=== PATIENT | male | born 2000 | race Caucasian/White ===

== ENCOUNTER 2024-09-13 12:18 | Outpatient (CLI) | payer OTHER, SELFPAY ==
--- NOTE | ~2024-09-13 | XR_ITS ---
Clinical Indication: Pectus PA and lateral views of the chest: Comparison: 09/15/2005 Findings: The lungs are clear, without evidence of focal consolidation or pleural effusion. Cardiome diastinal silhouette is within normal limits. Bones and soft tissues appear unremarkable. Impression: No significant abnormality seen. Reviewed, dictated and finalized at location . Impression: No significant abnormality seen.
--- OUTSIDE RECORDS SUMMARY | 2024-09-13 12:22 | XMS_ITS | Encounter Summary ---
Author Organization [facility] Health Address [address] [place] [address] Care Team Providers Care Rail Technician Name Role Phone Bridget Lorenz MD Primary Care Provider [phone] Ned Frazier MD Primary Care Provider [phone] Encounter Details Date Type Department Care Team (Late st Contact Info) Description 08/19/2013 [facility] DEPT Unknown, Provider Social History Tobacco Use Types Packs/Day Years Used Date Smoking Tobacco: Never Assessed Sex and Gender Information Value Date Recorded Sex Assigned at Not on file 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
--- OUTSIDE RECORDS SUMMARY | 2024-09-13 12:22 | XMS_ITS | Clinical Summary ---
Author Organization [facility] Address [address] [facility] [place] [address] Care Team Providers Care Information Systems Specialist Name Role Phone Ned Frazier MD Primary Care Provider [phone] Source Comments [facility],non-owned Affiliates and Associated Physician Practices is amultiple site organization consisting of ambulatory clinics and hospital sitesin [place], [place], [place] and [place]. This disclosure is being madepursuant to the Care Everywhere program and may not contain all information available regarding this patient. Last updated 17.[facility] Allergies No known active allergies Medications * Be aware that medications may not be up to date on this document. Alwaysverify current medications with the patient. sulfacetamide sodium-sulfur (Avar-e Emollient) 10-5 % creamIndication s:Rosacea Apply to affected area once daily Apply to face daily Reasons: Rosacea 57 g 5 10/18/2023 Active Active Problems No known active problems Immunizations Immunization Administration Dates Next Due INFLUENZA VACCINE, TRIV. (AF LURIA, FLUZONE TRIVALENT; 6MO+) (IIV3) 12/07/2011 DTaP VACCINE IM (6wk-6yrs) 07/28/2007,,01/30/2003,11/28,2002 HEP A PEDS 2 DOSE 02/13/2005,08/15/2004 HEP B VACCINE, PED/ADOL 01/30/2003,11/28,2002,07/26 HIB BOOSTER 11/26/2003, 3,2002,09/25 Human Papilloma Virus Vipul valent Vaccine 05/22/2014,01/16/2014,11/14/2013 INFLUENZA A [id number] VACCINE 01/11/2009 INFLUENZA VACCINE 01/03/2008, 7,12/29/2005,01/13,12/13/2003 INFLUENZA VACCINE, QUADR. 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 Gender Identity Not on file Sexual Orientation Not on file Last Filed Vital Signs Vital Sign Reading Time Taken Comments Blood Pressure 103/63 08/12/2017 3:30 PM CDT Pulse 78 08/12/2017 3:30 PM CDT Temperature 37.4 C (99.3 F) 08/12/2017 3:30 PM CDT Respiratory Rate - - Oxygen Saturation - - Inhaled Oxygen Concentration - - Weight 65.3 kg (144 lb) 08/12/2017 3:30 PM CDT Height 186.7 cm (6' 1.5) 08/12/2017 3:30 PM CDT Body Mass Index 18.74 08/12/2017 3:30 PM CDT Plan of Treatment Health Maintenance Due Date Last Done Comments HIV SCREENING 2017 MENINGOCOCCAL (Group B) VACCINE SHARED DECISION-MAKING (1 of 2 - Standard) 2018 HEPATITIS C SCREENING 07/21/2020 DTAP/TDAP/TD VACCINES (7 - Td or Tdap) 10/22/2023 10/21/2013, 07/28/2007, 01/29/2004, Additional history exists COVID-19 VACCINE ( season) 2023 DEPRESSION SCREENING 03/08/2024 INFLUENZA VACCINE (Season Ended) 2024 12/04/2017, 12/27/2015, 12/18/2014, Additional history exists ZOSTER VACCINE (1 of 2) 2052 HEPATITIS B VACCINE Completed 01/30/2003, 2002, 2002, Additional history exists HIB VACCINE Completed 11/26/2003, 01/07, 2002, Additional history exists PNEUMOCOCCAL VACCINE Completed 01/29/2004, 01/30/2003, 2002, Additional history exists MENINGOCOCCAL GROUPS A/C/Y/W VACCINE Aged Out 10/21/2013 No longer eligible based on patient's age to complete this topic HPV VACCINE Completed 05/22/2014, 01/06, 11/14/2013 Goals Goal Patient Goal Type Associated Problems Recent Progress Patient-Stated? Author SSJavier Lifestyle: Use safety retraint in car Lifestyle On track( 018 3:30 PM CDT) Yoli Tolliver, TROY [place] [address] [facility] Care Teams Information Systems Specialist Relationship Specialty Start Date End Date Ned Frazier MD PCP - General 09/22/17
--- OUTSIDE RECORDS SUMMARY | 2024-09-13 12:22 | XMS_ITS | Encounter Summary ---
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
--- OUTSIDE RECORDS SUMMARY | 2024-09-13 12:22 | XMS_ITS | Referral Summary ---
Author Organization [facility] Address [address] [place] [id number] Care Team Providers Care Contract Negotiation Specialist Name Role Phone Ned Frazier MD Primary Care Provider [phone] Allergies No known active allergies Medications buPROPion XL (WELLBUTRIN XL) 300 mg 24 hr tablet Take 300 mg by mouth daily 10/11/2020 Active cholecalciferol (cholecalciferol ) 400 unit capsule Take 300 Units by mouth daily Active ibuprofen (ADVIL,MOTRIN) 200 mg tab/cap Take 2 tablet/caps ule (400 mg total) by mouth every 6 (six) hours as needed for pain 0 12/16/2020 Active Active Problems Problem Noted Date Diagnosed Date Finger mass, right 11/12/2020 Overview (11/12/2020): Added automatically from request for surgery [id number] Social History Tobacco Use Types Packs/Day Years Used Date Smoking Tobacco: Never Smokeless Tobacco: Never Sex and Gender Information Value Date Recorded Sex Assigned at Not on file Legal Sex Male 1:45 PM CDT Gender Identity Not on file Sexual Orientation Not on file Last Filed Vital Signs Vital Sign Reading Time Taken Comments Blood Pressure 94/64 12/16/2020 1:54 PM CDT Pulse 86 12/16/2020 1:54 PM CDT Temperature 37.2 C (99 F) 12/16/2020 1:24 PM CDT Respiratory Rate 18 12/16/2020 1:40 PM CDT Oxygen Saturation 97% 12/16/2020 1:54 PM CDT Inhaled Oxygen Concentration - - Weight 77.9 kg (171 lb 11.8 oz) 021 12:11 PM CDT Height 193 cm (6' 3.98) 12/16/2020 12: 11 PM CDT Body Mass Index 20.91 12/16/2020 12:11 PM CDT Plan of Treatment Not on file Insurance [facility] CHOICE PLUS [place] [id number] Advance Directives For more information, please contact: [phone] Documents on File Type Date Recorded Patient Editorial Cartoonist Expl anation ADVANCE DIRECTIVE 12/16/2020 12:08 PM * Full Code (Latest Code Status on File) Date Activated Date Inactivated Comments 12/16/2020 12:11 PM 12/16/2020 6:38 PM Care Teams Contract Negotiation Specialist Relationship Specialty Start Date End Date Ned Frazier MD [address] [place] [id number] PCP - General Family Medicine 11/06/20
--- OUTSIDE RECORDS SUMMARY | 2024-09-13 12:22 | XMS_ITS | Clinical Summary ---
Author Organization [facility] Address [address] [place] [id number] Care Team Providers Care Sheet Rock Sander Name Role Phone Ned Frazier MD Primary Care Provider [phone] Allergies No known active allergies Medications buPROPion [...] (11/12/2020): Added automatically from request for surgery [id number] Surgical History Surgery Date Site/Laterality Comments WISDOM TOOTH EXTRACTION 03/08/2018 - 03/07/2019 Medical History Medical History Date Comments Depression Seasonal allergies Migraine Family History Medical History Relation Name Comments Cancer Father Clotting disorder Father No Known Problems Mother Relation Name Status Comments Father Mother Social History Tobacco Use Types Packs/Day Years Used Date Smoking Tobacco: Never Smokeless Tobacco: Never Sex and Gender Information Value Date Recorded Sex Assigned at Not on file Legal Sex Male 1:45 PM CDT Gender Identity Not on file Sexual Orientation Not on file Obstetrics History Last Filed Vital Signs Vital Sign Reading [...] Plan of Treatment Not on file Insurance CHOICE PLUS [facility] H[facility]/PPO Address: [facility] [address] [place] [address] [facility] CHOICE PLUS [facility] H[facility]/PPO Address: [facility] [address] [place] [address] Advance Directives For more information, please contact: [phone] Documents on File Type Date Recorded 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
== END 2024-09-13 12:19 | disposition home or self-care (01) ==
PROVIDERS: PCP Family Medicine
DX: Q67.6 Pectus excavatum (principal); R06.09 Other forms of dyspnea
CPT/HCPCS: 71046